=== PATIENT | male | born 1990 | race American Indian/Alaskan Native ===

== ENCOUNTER 2023-08-02 18:39 | Emergency (ER) | payer MEDICAID ==
[~2023-08-02] VITALS: Ht 175.3 cm; Wt 87.8 kg
[2023-08-02] MEDS ORDERED: ondansetron HCL 4 MG/2 ML VIAL IV ONE (19:15)
[2023-08-02] MEDS ORDERED: THIAMINE HCL 100 MG,FOLIC ACID 1 MG,MULTIVITAMINS 10 ML in SODIUM CHLORIDE 0.9% 1,000 ML IV ONE (19:15)
[2023-08-02] MEDS ORDERED: diazePAM 5 MG TAB PO ONE (19:15)
[2023-08-02] MEDS ORDERED: FOLIC ACID 1 MG/0.2 ML ML ONE (19:24)
[2023-08-02 20:00] LABS: BASOPHILS 1.9 % (0-2); EOSINOPHILS 1.9 % (0-6); HEMATOCRIT 35.6 % (35.0-50.0); LYMPHOCYTES 30.7 % (24-44); MCH 33.2 (27-36); MCHC 33.7 g/dl (30-36); MCV 98.8 fl (81-99); MONOCYTES 9.5 % (0-12); PLATELET COUNT 124 K/uL (140-440); RDW 16.3 (10.5-15.0)
[2023-08-02 20:10] LABS: INR 1.2 (0.80-1.30); PROTIME 14.8 Sec (11.2-14.2)
[2023-08-02 20:15] LABS: AMPHETAMINES, URINE NEGATIVE (NEGATIVE); BARBITURATES, URINE NEGATIVE (NEGATIVE); BENZODIAZEPINE, URINE POSITIVE (NEGATIVE); BUPRENORPHINE, URINE NEGATIVE (NEGATIVE); CANNABINOID, URINE POSITIVE (NEGATIVE); COCAINE, URINE NEGATIVE (NEGATIVE); ECSTASY, URINE NEGATIVE (NEGATIVE); FENTANYL, URINE NEGATIVE (NEGATIVE); METHADONE, URINE NEGATIVE (NEGATIVE); OPIATES, URINE NEGATIVE (NEGATIVE); OXYCODONE, URINE NEGATIVE (NEGATIVE); PHENCYCLIDINE, URINE NEGATIVE (NEGATIVE)
[2023-08-02 20:17] LABS: ALBUMIN/GLOBULIN RATIO 0.61 (1.1-2.4); ANION GAP 14.8 (7-21); BILIRUBIN, TOTAL 1.5 ng/dL (0.2-1.0); BUN/CREATININE RATIO 10.14 (6.0-28.6); CALCIUM 7.6 mg/dL (8.5-10.1); CREATININE, SERUM 0.69 mg/dL (0.70-1.30); MAGNESIUM 1.8 mg/dL (1.8-2.4); PHOSPHORUS, INORGANIC 3.5 mg/dL (2.5-4.9); POTASSIUM 3.8 mmol/L (3.5-5.1); PROTEIN, TOTAL 7.9 g/dL (6.4-8.2)
[2023-08-02] MEDS ORDERED: CHLORDIAZEPOXID25 MG PO (21:25)
[2023-08-02 21:35] VITALS: BP 127/75
== END 2023-08-02 21:35 | disposition home or self-care (01) ==
LOC: ED 18:39
PROVIDERS: Family Medicine
DX: F10.10 Alcohol abuse, uncomplicated (principal)
CPT/HCPCS: 36415; 80053; 80307; 83735; 84100; 85025; 85610; G0480; J2405; J3411; J7030

== ENCOUNTER 2023-08-04 21:18 | Emergency (ER) | payer OTHER ==
[~2023-08-04] VITALS: Ht 175.3 cm; Wt 86.4 kg
[~2023-08-04 21:18] MED LIST: CHLORDIAZEPOXID25 MG PO
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
[2023-08-04 22:11] LABS: BASOPHILS 0.2 % (0-2); EOSINOPHILS 2.6 % (0-6); HEMATOCRIT 36.9 % (35.0-50.0); HEMOGLOBIN 12.6 g/dL (12.0-18.0); LYMPHOCYTES 21.6 % (24-44); MCH 33.8 (27-36); MCHC 34.2 g/dl (30-36); MONOCYTES 6.8 % (0-12); NEUTROPHILS 68.8 % (39-80); PLATELET COUNT 103 K/uL (140-440); RBC 3.73 M/ul (4.3-5.7); RDW 15.8 (10.5-15.0)
[2023-08-04 22:27] LABS: ACETAMINOPHEN 0 ug/mL (10-30); ALBUMIN/GLOBULIN RATIO 0.56 (1.1-2.4); ALKALINE PHOSPHATASE 135 U/L (46-116); ALT (SGPT) 65 U/L (14-59); ANION GAP 18.3 (7-21); AST (SGOT) 166 U/L (15-37); BILIRUBIN, TOTAL 2.6 ng/dL (0.2-1.0); BUN/CREATININE RATIO 9.18 (6.0-28.6); CALCIUM 8.1 mg/dL (8.5-10.1); CARBON DIOXIDE 22 mmol/L (21-32); CHLORIDE 103 mmol/L (98-107); CREATININE, SERUM 0.98 mg/dL (0.70-1.30); GLOMERULAR FILTRATION RATE,EST 105 mL/min (>60); POTASSIUM 3.3 mmol/L (3.5-5.1); PROTEIN, TOTAL 8.4 g/dL (6.4-8.2); UREA NITROGEN 9 mg/dL (7-18)
[2023-08-04 22:28] LABS: ALCOHOL, MEDICAL 364 ng/dL (<3); SALICYLATE <0.2 mg/dL (2.8-20.0)
[2023-08-04] MEDS ORDERED: LACTATED RINGER'S 1,000 ML IV ONE (22:30)
[2023-08-04] MEDS ORDERED: LORazepam 1 MG TAB PO ONE (22:30)
[2023-08-04 22:32] LABS: BILIRUBIN, URINE NEGATIVE (negative); BLOOD/HGB, URINE NEGATIVE (Negative); KETONE, URINE NEGATIVE (Negative); LEUK ESTERASE, URINE NEGATIVE (negative); NITRITE, URINE NEGATIVE (negative); PH, URINE 5.5 (5-7)
[2023-08-04 22:46] LABS: AMPHETAMINES, URINE NEGATIVE (NEGATIVE); BARBITURATES, URINE NEGATIVE (NEGATIVE); BENZODIAZEPINE, URINE POSITIVE (NEGATIVE); BUPRENORPHINE, URINE NEGATIVE (NEGATIVE); CANNABINOID, URINE NEGATIVE (NEGATIVE); COCAINE, URINE NEGATIVE (NEGATIVE); ECSTASY, URINE NEGATIVE (NEGATIVE); FENTANYL, URINE NEGATIVE (NEGATIVE); METHADONE, URINE NEGATIVE (NEGATIVE); OPIATES, URINE NEGATIVE (NEGATIVE); OXYCODONE, URINE NEGATIVE (NEGATIVE); PHENCYCLIDINE, URINE NEGATIVE (NEGATIVE)
[2023-08-04 22:48] LABS: TSH, 3RD GENERATION 1.799 uIU/mL (0.358-3.740)
[2023-08-04] MEDS ORDERED: ATIVAN0.5 MG PO (23:22)
[2023-08-04 23:30] VITALS: BP 114/82
== END 2023-08-04 23:30 | disposition home or self-care (01) ==
LOC: ED 21:18
PROVIDERS: Internal Medicine
DX: F10.229 Alcohol dependence with intoxication, unspecified (principal)
CPT/HCPCS: 36415; 80053; 80307; 81003; 84443; 85025; A9270-GY; G0480; J7121

== ENCOUNTER 2023-08-05 22:00 | Emergency (ER) | payer MEDICAID ==
[~2023-08-05] VITALS: Ht 175.3 cm; Wt 87.2 kg
[~2023-08-05 22:00] MED LIST changes: +ATIVAN0.5 MG PO
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
[2023-08-05] MEDS ORDERED: IBUPROFEN 800 MG TAB PO ONE (23:30)
[2023-08-05 23:59] VITALS: BP 119/70
== END 2023-08-05 23:59 | disposition home or self-care (01) ==
LOC: ED 22:00
DX: S83.92XA Sprain of unspecified site of left knee, initial encounter (principal); W22.8XXA Striking against or struck by other objects, initial encounter
CPT/HCPCS: 73560; 99283-25; A9270